=== PATIENT | female | born 2000 | race Caucasian/White ===

== ENCOUNTER 2022-06-28 11:16 | Emergency (ER) | payer MEDICAID ==
[~2022-06-28] VITALS: Ht 177.8 cm; Wt 72.7 kg
[~2022-06-28 11:16] MED LIST: VALTREX 50500 MG/TAB PO
[2022-06-28 12:06] LABS: COLLECTION METHOD CLEAN CATCH
[2022-06-28 12:15] LABS: MUCOUS Present (NOT PRESENT); SQUAMOUS EPITHELIAL 20-50 /hpf (0-10); URINE BACTERIA Moderate /hpf (NONE SEEN)
[2022-06-28 12:19] LABS: PH 5.5 (5.0-8.5); URINE APPEARANCE Clear (CLEAR/HAZY); URINE COLOR Yellow (YELLOW); URINE GLUCOSE Negative (NEGATIVE); URINE KETONE TRACE (NEGATIVE); URINE PROTEIN(semi-quant) TRACE (NEGATIVE)
[2022-06-28 12:20] LABS: URINE BLOOD TRACE-INTACT (NEGATIVE); URINE NITRATE Negative (NEGATIVE); URINE UROBILINOGEN 0.2 E.U/dL (0.2-1.0)
[2022-06-28 12:32] LABS: BASO % 0.4 % (0.0-2.0); EOS # 0.1 K/mm3 (0.0-0.7); EOS % 0.9 % (0.0-4.0); GRAN # 5.5 K/mm3 (1.4-6.5); HEMATOCRIT 39.5 % (37.0-47.0); HEMOGLOBIN 13.5 g/dl (12.5-16.0); LYMPH # 1.7 K/mm3 (1.2-3.4); LYMPH % 21.5 % (20.0-51.0); MEAN CELL VOLUME 92 fl (80.0-100.0); MEAN CORPUSCULAR HEMOGLOBIN 32 pg (27-31); MEAN CORPUSCULAR HGB CONC 34 g/dl (33.0-37.0); MEAN PLATELET VOLUME 9.3 fl (7.4-10.4); MONO # 0.5 K/mm3 (0.1-0.6); MONO % 6.8 % (1.7-9.3); PLATELET COUNT 290 K/mm3 (130-400); RED BLOOD COUNT 4.29 M/mm3 (4.10-5.30); REDCELL DISTRIBUTION WIDTH-CV 12.3 % (11.5-14.5)
[2022-06-28 12:41] LABS: ALBUMIN 4.3 gm/dL (3.5-5.0); BILIRUBIN,TOTAL 0.3 mg/dL (0.2-1.2); C-REACTIVE PROTEIN 0.69 mg/dL (0.00-0.50); CALCIUM 9.3 mg/dL (8.4-10.2); CREATININE, serum 0.73 mg/dL (0.57-1.11); POTASSIUM 3.9 mmol/L (3.5-4.5)
[2022-06-28] MEDS ORDERED: MACROBID 1100 MG/CAP PO (13:41)
[2022-06-28 13:54] VITALS: BP 110/68; PULSE 66; TEMP 98.2
[2022-06-28] MEDS ORDERED: ZOFRAN ODT4 MG PO (13:57)
== END 2022-06-28 13:59 | disposition home or self-care (01) ==
LOC: COL.ER 11:16
PROVIDERS: Nurse Practitioner
DX: K52.9 Noninfective gastroenteritis and colitis, unspecified (principal); N39.0 Urinary tract infection, site not specified; R79.82 Elevated C-reactive protein (CRP); Z28.310 Unvaccinated for COVID-19
CPT/HCPCS: J2405; J7030